=== PATIENT | male | born 1945 | race Caucasian/White ===

== ENCOUNTER → 2018-08-29 | Outpatient (CLI) | payer MEDICARE, OTHER ==
[~2018-08-29] MED LIST: CLIN150 PO; DOXA2 PO; Doxazosin Mesyla8 MG PO; ESCI10 PO; HYDACE5 PO; KETO10 PO; LEVFLO500 PO; LISI10 PO; LISI20 PO; NIFE60ER PO; PROP10 PO; RXCLIN PO; TAMS.4ER PO; TOLT4 PO; VENL75ER PO
== END ==
LOC: LAB SHORT 11:40 → PLD 11:40
DX: D48.5 Neoplasm of uncertain behavior of skin (principal)
CPT/HCPCS: 88305

== ENCOUNTER 2018-12-03 09:30 | Day surgery (SDC) | payer MEDICARE, OTHER ==
[~2018-12-03] VITALS: Ht 185.4 cm; Wt 123.5 kg
[~2018-12-03 09:30] MED LIST changes: +ADULT ASPIRIN R81 MG PO; +AMLO10 PO; +Align4 MG PO; +Cialis5 MG PO; +KRILL OIL 3001 EACH PO; +VITAMIN C500 M1 PO; +VITAMIN D31000 UNIT PO
[2018-12-03] MEDS ORDERED: Lexapro 2020 MG (10:42)
== END 2018-12-03 12:11 | disposition home or self-care (01) ==
LOC: ORSCSDS 09:30
PROVIDERS: Surgery
PROC: 0DBK8ZX Excision of Ascending Colon, Via Natural or Artificial Opening Endoscopic, Diagnostic (ICD-10-PCS; principal; 2018-12-03 11:00)
PROC: 0DBL8ZX Excision of Transverse Colon, Via Natural or Artificial Opening Endoscopic, Diagnostic (ICD-10-PCS; principal; 2018-12-03 11:00)
DX: Z12.11 Encounter for screening for malignant neoplasm of colon (principal); D12.3 Benign neoplasm of transverse colon; K63.5 Polyp of colon; K57.30 Diverticulosis of large intestine without perforation or abscess without bleeding; Z86.010 Personal history of colon polyps; Z80.0 Family history of malignant neoplasm of digestive organs; G47.33 Obstructive sleep apnea (adult) (pediatric); I10 Essential (primary) hypertension; E78.5 Hyperlipidemia, unspecified; F41.8 Other specified anxiety disorders; N40.0 Benign prostatic hyperplasia without lower urinary tract symptoms; E66.9 Obesity, unspecified; Z68.35 Body mass index [BMI] 35.0-35.9, adult; Z79.82 Long term (current) use of aspirin; Z79.899 Other long term (current) drug therapy
CPT/HCPCS: 88305; J2704; J7120

== ENCOUNTER → 2019-03-08 | Outpatient (CLI) | payer MEDICARE, BC ==
[~2019-03-08] MED LIST changes: +Lexapro 2020 MG
[2019-03-08 10:16] LABS: BASOPHILS ABSOLUTE AUTO 0.02 K/mm3 (0.00-0.23); BASOPHILS PERCENT AUTO 0 % (0-2); EOSINOPHILS ABSOLUTE AUTO 0.02 K/mm3 (0.00-0.68); EOSINOPHILS PERCENT AUTO 0 % (0-6); Hematocrit 43.5 % (37.0-53.0); Hemoglobin 14.1 g/dL (13.5-17.5); IMMATURE GRAN ABSOLUTE AUTO 0.03 K/mm3 (0.00-0.10); IMMATURE GRAN PERCENT AUTO 0 % (0-1); LYMPHOCYTES ABSOLUTE AUTO 0.65 K/mm3 (0.84-5.20); LYMPHOCYTES PERCENT AUTO 7 % (21-46); MONOCYTES ABSOLUTE AUTO 0.62 K/mm3 (0.16-1.47); MONOCYTES PERCENT AUTO 6 % (4-13); Mean Corpuscular HGB Conc 32.4 g/dL (31.5-36.5); Mean Corpuscular Volume 87 fL (80-100); NEUTROPHILS ABSOLUTE AUTO 8.45 K/mm3 (1.96-9.15); NEUTROPHILS PERCENT AUTO 86 % (41-73); Platelet Count 191 K/mm3 (150-400); RDW Coefficient Variation 14.1 % (11.7-14.2); RDW Standard Deviation 43.9 fL (35.1-46.3); Red Blood Cell Count 5.03 M/mm3 (4.30-5.90); White Blood Cell Count 9.79 K/mm3 (4.00-11.30)
== END | disposition home or self-care (01) ==
LOC: LAB 09:42 → LAB SHORT 09:42
PROVIDERS: Physician Assistant
DX: L08.9 Local infection of the skin and subcutaneous tissue, unspecified (principal)
CPT/HCPCS: 85025

== ENCOUNTER 2020-02-10 11:56 | Day surgery (SDC) | payer MEDICARE, BC ==
[~2020-02-10] VITALS: Ht 188 cm; Wt 120.4 kg
[~2020-02-10 11:56] MED LIST changes: +AMLODIPINE BESY10 MG PO; -Lexapro 2020 MG; +Lexapro 2020 MG PO
== END 2020-02-10 14:22 | disposition home or self-care (01) ==
LOC: ORSCSDS 11:56
PROVIDERS: Surgery
PROC: 0DBH8ZX Excision of Cecum, Via Natural or Artificial Opening Endoscopic, Diagnostic (ICD-10-PCS; principal; 2020-02-10 13:30)
DX: Z86.010 Personal history of colon polyps (principal); D12.0 Benign neoplasm of cecum; K57.30 Diverticulosis of large intestine without perforation or abscess without bleeding; Z80.0 Family history of malignant neoplasm of digestive organs; I10 Essential (primary) hypertension; F41.8 Other specified anxiety disorders; E78.5 Hyperlipidemia, unspecified; G47.30 Sleep apnea, unspecified; G47.33 Obstructive sleep apnea (adult) (pediatric); Z87.891 Personal history of nicotine dependence; E66.9 Obesity, unspecified; Z68.35 Body mass index [BMI] 35.0-35.9, adult; Z79.82 Long term (current) use of aspirin; Z79.899 Other long term (current) drug therapy
CPT/HCPCS: 88305; J2704; J7120

== ENCOUNTER → 2021-01-17 | Outpatient (CLI) | payer MEDICARE, BC | LOC: LAB SHORT 14:52 → LAB 14:52 | DX: D48.5 Neoplasm of uncertain behavior of skin (principal); D22.22 Melanocytic nevi of left ear and external auricular canal | CPT/HCPCS: 88305; 88313 ==

== ENCOUNTER → 2021-03-30 | Outpatient (CLI) | payer MEDICARE, BC | LOC: LAB 15:15 → LAB SHORT 15:15 | DX: D48.5 Neoplasm of uncertain behavior of skin (principal); Q82.8 Other specified congenital malformations of skin; Z88.1 Allergy status to other antibiotic agents; Z88.7 Allergy status to serum and vaccine | CPT/HCPCS: 88305; 88312 ==

== ENCOUNTER 2025-04-22 18:00 | Emergency (ER) | payer OTHER, MEDICARE, BC ==
[~2025-04-22] VITALS: Ht 185.4 cm; Wt 112.0 kg
[2025-04-22 18:50] LABS: BASOPHILS ABSOLUTE AUTO 0.03 K/mm3 (0.00-0.23); BASOPHILS PERCENT AUTO 0 % (0-2); EOSINOPHILS ABSOLUTE AUTO 0.09 K/mm3 (0.00-0.68); EOSINOPHILS PERCENT AUTO 1 % (0-6); Hematocrit 51.8 % (37.0-53.0); Hemoglobin 17.1 g/dL (13.5-17.5); IMMATURE GRAN ABSOLUTE AUTO 0.02 K/mm3 (0.00-0.10); IMMATURE GRAN PERCENT AUTO 0 % (0-1); LYMPHOCYTES ABSOLUTE AUTO 1.55 K/mm3 (0.84-5.20); LYMPHOCYTES PERCENT AUTO 22 % (21-46); MONOCYTES ABSOLUTE AUTO 0.43 K/mm3 (0.16-1.47); MONOCYTES PERCENT AUTO 6 % (4-13); Mean Corpuscular HGB Conc 33.0 g/dL (31.5-36.5); Mean Corpuscular Volume 86 fL (80-100); NEUTROPHILS ABSOLUTE AUTO 4.82 K/mm3 (1.96-9.15); NEUTROPHILS PERCENT AUTO 70 % (41-73); NRBC ABSOLUTE 0.00 K/mm3 (0.00-0.02); NRBC Auto 0.0 /100 WBC (0.0-0.2); Platelet Count 209 K/mm3 (150-400); RDW Coefficient Variation 13.0 % (11.7-14.2); RDW Standard Deviation 40.8 fL (35.1-46.3)
[2025-04-22 19:46] LABS: Alanine Aminotransfer (ALT/SGP 30.0 U/L (12-78); Albumin, Blood 4.1 g/dL (3.4-5.0); Albumin/Globulin Ratio 1.1 (0.8-1.8); Anion Gap 9.0 mmol/L (3-11); Aspartate Aminotrans (AST/SGOT 25.0 U/L (12-37); Bilirubin, Total 0.5 mg/dL (0.1-1.0); Blood Urea Nitrogen 24.0 mg/dL (8-24); CO2, Blood 28.0 mmol/L (21-32); Calcium, Blood 9.4 mg/dL (8.5-10.1); Chloride, Blood 105.0 mmol/L (98-108); Creatinine, Blood 1.08 mg/dL (0.60-1.20); Globulin, Blood 3.7 g/dL (2.2-4.0); Glucose, Blood 115.0 mg/dL (70-99); Potassium, Blood 4.0 mmol/L (3.5-5.5); Sodium, Blood 138.0 mmol/L (136-145); Total Protein, Blood 7.8 g/dL (6.4-8.2)
[2025-04-22 22:30] VITALS: BP 169/87
== END 2025-04-22 22:53 | disposition home or self-care (01) ==
LOC: ER 18:00
PROVIDERS: Student in an Organized Health Care Education/Training Program
DX: S00.83XA Contusion of other part of head, initial encounter (principal); I10 Essential (primary) hypertension; I48.91 Unspecified atrial fibrillation; Z87.891 Personal history of nicotine dependence; Z88.1 Allergy status to other antibiotic agents; Z88.7 Allergy status to serum and vaccine; Z79.82 Long term (current) use of aspirin; Z79.899 Other long term (current) drug therapy; W01.0XXA Fall on same level from slipping, tripping and stumbling without subsequent striking against object, initial encounter
CPT/HCPCS: 70450; 80053; 85025; 93005; 93010; 99284-25